=== PATIENT | female | born 1980 | race Caucasian/White ===

== ENCOUNTER 2018-12-11 15:29 | Outpatient (REF) | payer OTHER, SELFPAY ==
--- NOTE | 2018-12-11 15:00 | PAPFT_PTH ---
PATIENT: JOAQUIN RESTREPO LOC: [facility]#:[id number] AGE/SX: 38/F ROOM: RE12/11/[address]: Susana Herman : 1980 BED: DIS: 12/11/2018 SPEC #: [id number] RECD: 12/12/18 12:53 STATUS: KARTIK REKathryn #: [id number] ANA: 12/11/18 15:[address]: Susana Herman DEPT: [facility] Cytology RECD BY: Shahla Ortiz ENTERED: 12/12/18 12:53 SP TYPE: PAPFT CHARLIE DR: Brandy Hirsch, [facility] Tissues: 1 - CX/ENDOCX FOR PAP SMEARS Procedures: PAP THIN PREP/[facility] Screening HPV DNA PROBE Comments: [id number]
[2018-12-11 21:22] LABS: TSH (W/Ref FT4) 1.63 uIU/mL (0.358-3.74)
== END 2018-12-11 15:49 ==
LOC: NCHCN 15:29
PROVIDERS: PCP Nurse Practitioner Primary Care; Visit Provider Nurse Practitioner Family
DX: Z00.00 Encounter for general adult medical examination without abnormal findings (principal); N92.6 Irregular menstruation, unspecified; G43.109 Migraine with aura, not intractable, without status migrainosus; J30.9 Allergic rhinitis, unspecified; Z12.4 Encounter for screening for malignant neoplasm of cervix; Z11.51 Encounter for screening for human papillomavirus (HPV)
CPT/HCPCS: 88142; 84443; 87624

== ENCOUNTER 2020-05-28 19:05 | Outpatient (REF) | payer OTHER, SELFPAY | END 2020-05-28 19:25 | LOC: NCHCN 19:05 | PROVIDERS: PCP Nurse Practitioner Primary Care; Visit Provider Family Medicine | DX: N89.8 Other specified noninflammatory disorders of vagina (principal) | CPT/HCPCS: 87480; 87510; 87660 ==